=== PATIENT | female | born 1995 | race Caucasian/White ===

== ENCOUNTER 2020-01-30 14:44 | Emergency (ER) | payer MEDICAID, OTHER ==
[~2020-01-30] VITALS: Ht 157.5 cm; Wt 86.0 kg
[2020-01-30] MEDS ORDERED: LIDODERM 5% PATCH TD ONE ×2 (16:00→16:05)
[2020-01-30] MEDS ORDERED: KETOROLAC 30 MG/1 ML IM ONE (16:00)
[2020-01-30] MEDS ORDERED: DIAZEPAM 5 MG TABLET PO ONE (16:00)
[2020-01-30] MEDS ORDERED: KETOROLAC 30 MG/1 ML ONE (16:05)
[2020-01-30] MEDS ORDERED: DIAZEPAM 5 MG TABLET ONE (16:05)
[2020-01-30 16:31] VITALS: BP 126/81
== END 2020-01-30 16:47 | disposition home or self-care (01) ==
LOC: ED 16:15
DX: M54.5 Low back pain (principal); M53.3 Sacrococcygeal disorders, not elsewhere classified; R11.0 Nausea
CPT/HCPCS: 96372; 99283; J1885